=== PATIENT | female | born 1945 | race Caucasian/White ===

== ENCOUNTER 2020-03-05 15:07 | Emergency (ER) | payer MEDICARE, BC ==
--- NOTE | 2020-03-05 15:39 | EDM.PDOC ---
ED HPI GENERAL MEDICAL PROBLEM - General Chief Complaint: Headache Stated Complaint: HEADACHES AND MALONE SPOTS Time Seen by Provider: 03/05/20 15:35 Source of Information: Reports: Patient History Limitations: Reports: No Limitations - History of Present Illness INITIAL COMMENTS - FREE TEXT/NARRATIVE: 75-year-old female presents to the ED with acute left hemicranial headache prim arily in the parietal cortex over scalp. She states she never gets headaches. She states she was vigorously shaking a jar of mayonnaise yesterday morning and about 10 minutes later she developed the sudden onset of a headache in the left side of her head. She believes since then she is also had scotomata or floaters in her left visual field but no loss of visual field. Headache persists a day. Patient is concerned because she is on Coumadin for atrial fibrillation. Her numbers have been running high lately and they have been reducing her dosage. She has no problems with her balance she has had no nausea or vomiting. She has had no falls or closed head injuries. Stroke alert was called on this patient and she was seen promptly. Onset: Sudden Onset Date: 03/04/20 Duration: Hour(s):, Constant Location: Reports: Head ( Lt parietal headache. No skin sensitivity. ), Other (scotomata Lt eye ) Quality: Reports: Ache, Throbbing Severity: Moderate Improves with: Reports: None Worsens with: Reports: None Context: Denies: Activity, Exercise, Lifting, Sick Contact, Trauma, Other Treatments HADOOP DEVELOPER: Reports: Other (see below) (Taken a few Motrin tablets in spite of being on Coumadin for the headache.) Headache Pain Score (Numeric/FACES): 4 - Related Data Allergies Allergy/AdvReac Type Severity Reaction Status Date / Time sulfanilamide [Sulfanilamide] Allergy Hives Verified 03/05/20 15:24 Home Meds: Home Meds Levothyroxine [Synthroid] 100 mcg PO DAILY 05/15/18 [History] Metoprolol Succinate 100 mg PO DAILY 05/15/18 [History] Warfarin Sodium [Jantoven] 2.5 mg PO ASDIRECTED 05/15/18 [History] Warfarin Sodium [Jantoven] 5 mg PO ASDIRECTED 05/15/18 [History] dilTIAZem HCL [Cartia Xt] 120 mg PO DAILY 05/15/18 [History] Past Medical History HEENT History: Reports: Impaired Vision Other HEENT History: wears glasses Cardiovascular History: Reports: Afib, Hypertension Other Cardiovascular History: atrial fib PHOTO PRODUCER History: Reports: - Past Surgical History GI Surgical History: Reports: Colonoscopy Female Surgical History: Reports: Hysterectomy Musculoskeletal Surgical History: Reports: Shoulder Surgery Social & Family History - Caffeine Use Caffeine Use: Reports: Coffee - Living Situation & Occupation Living situation: Reports: Occupation: Employed (Self-employed) ED ROS GENERAL - Review of Systems Review Of Systems: See Below Constitutional: Denies: Fever, Chills, Malaise, Weakness, Fatigue, Decreased Appetite, Weight Loss HEENT: Reports: Glasses, Other (Change in visual field with scotomata and floaters I believe in her left visual field over the last day or 2.) Respiratory: Reports: No Symptoms Cardiovascular: Reports: Blood Pressure Problem, Palpitations, Other (Chronic atrial fibrillation.). Denies: Chest Pain Endocrine: Reports: Fatigue (Rarely appreciates palpitations.) GI/Abdominal: Reports: No Symptoms : Reports: Frequency Musculoskeletal: Reports: Back Pain (Patient on problems with knees and back pain.) Skin: Reports: Bruising (Bruises easily as she is on Coumadin.) Neurological: Reports: Headache (Headache in the left parietal scalp since yesterday morning). Denies: Confusion, Dizziness, Numbness, Paresthesia, Pre- Existing Deficit, Seizure, Syncope, Tingling ( which is rare for her to get a headache.), Tremors, Trouble Speaking, Difficulty Walking, Weakness, Change in Speech, Gait Disturbance Psychiatric: Reports: No Symptoms Hematologic/Lymphatic: Reports: No Symptoms Immunologic: Reports: No Symptoms - Physical Exam Exam: See Below Exam Limited By: No Limitations General Appearance: Alert, WD/WN, Anxious, Other (Patient absolutely refused to have an IV started for blood draw as she is deathly afraid of needles. She stated if we needed to start an IV she would leave rather than being seen. Most unusual reaction. Temperature is 36.2 with a heart rate of 73 respiratory is 20 O2 sats were 97% BP was initially elevated at 178 116 but did come down to 146/92.) Eye Exam: Bilateral Eye: Normal Inspection, PERRL Throat/Mouth: Normal Inspection, Normal Lips, Normal Oropharynx, Other Head Exam: Atraumatic, Normocephalic (Feel it is in the midline.) Neck: Normal Inspection, Supple, Non-Tender, Full Range of Motion, Carotid Bruit (Small very faint carotid bruit on the left side. Advised she should have ultrasound of the carotid arteries). No: Lymphadenopathy (L), Lymphadenopathy (R) Respiratory/Chest: Lungs Clear, Normal Breath Sounds (Mild tachypnea but I believe more to be anxiety.), No Accessory Muscle Use, Respiratory Distress Cardiovascular: Normal Peripheral Pulses, No Edema, No Gallop, No Murmur, No Rub, Irregularly Irregular GI/Abdominal: Normal Bowel Sounds, Soft, Non-Tender, No Organomegaly, No Mass, Pelvis Stable Neuro Exam (Abbreviated): Alert, Oriented, CN II-XII Intact, Normal Cognition, Other (Normal rapid alternating movements. No pronator drift. No weakness in any of her extremities. Visual field exam is normal compared to mine.) Extremities: Normal Inspection, Normal Range of Motion, Non-Tender Psychiatric: Normal Mood, Anxious Skin Exam: Warm, Dry, Intact, Normal Color, No Rash Course - Vital Signs Last Recorded V/S: Last Vital Signs Temp 36.2 C 03/05/20 15:21 Pulse 73 03/05/20 15:21 Resp 20 03/05/20 15:21 BP 178/116 H 03/05/20 15:21 Pulse Ox 97 03/05/20 15:21 - Radiology Interpretation Free Text/Narrative:: 75-year-old female presents to the ED complaining of a left hemicranial parietal headache since yesterday headaches are very unusual for her. She feels the headache came on after she was vigorously shaking a mayonnaise jar to get the mayonnaise out of it. Headache came on about 10 minutes later. She is on Coumadin for chronic atrial fibrillation and her dosages have been running high lately and have been altered almost on a weekly basis. She had a PT/INR drawn this morning but has not yet heard the results. Neuro exam was completely 100% normal. She has some scotomata in her right visual field and advised her to follow-up with optometry in this regard. There is no visual field deficit when compared to mine. Plan CT had to be done to rule out any intracranial bleeding - Re-Assessments/Exams Free Text/Narrative Re-Assessment/Exam: 03/05/20 16:37: CT of the head was performed without contrast. Ventricles along with the basal cisterns and sulci over the convexities are mildly prominent. Minimal basal ganglia calcification is seen. No abnormal parenchymal densities are seen. No evidence of intracranial hemorrhage. No midline shift or mass- effect is seen. Bone window settings were reviewed. Visualized paranasal sinuses and mastoid sinuses show nothing acute. Patient was reassured in this regard. She will continue use Tylenol on appearing basis for headache relief. My impression is that is coming out of the base of her neck. She is advised to keep an eye out for development of any rash to suggest shingles however her scalp was not hyper paresthetic. Advised direct care supervisor review of her eye to make sure there is no retinal disorder. Departure - Departure Time of Disposition: 17:15 Disposition: Home, Self-Care 01 Condition: Fair Clinical Impression: Headache Qualifiers: Headache type: unspecified Headache chronicity pattern: acute headache Intractability: not intractable Qualified Code(s): R51 - Headache - Discharge Information *PRESCRIPTION DRUG MONITORING PROGRAM REVIEWED*: Not Applicable *COPY OF PRESCRIPTION DRUG MONITORING REPORT IN PATIENT CA: Not Applicable Instructions: General Headache Without Cause Referrals: Sd Alonso MD [Primary Care Provider] - Forms: ED Department Discharge Additional Instructions: Arash today in regards to a left hemicranial headache primarily over the parietal aspect of this head since yesterday after vigorously shaking a mayonnaise jar. Usually rarely ever get a headache. Then you also appreciated flashing lights and floaters within your left visual field. I suspect the 2 things are not related. Due to the fact that you are on Coumadin a CT scan of your brain was carried out and was found to be within normal limits with no evidence of intracranial bleeding or mass-effect. Headaches usually come from the nerves that supply the scalp skin not from the brain itself which has no pain receptors. At this point time it may be referred from the upper neck musculature and nerves. Suggest Tylenol as needed for headache relief as you are on Coumadin and should not take too much Motrin as it further thins her blood. I would suggest follow-up with an direct care supervisor to have your left eye checked out to make sure that there is no developing retinal tears. Usually scotomata and floaters are secondary to aging inside the eye. Niccoli there is no evidence of glaucoma. Sepsis Event Note (ED) - Evaluation Sepsis Screening Result: No Definite Risk - Focused Exam Vital Signs: Vital Signs Temp Pulse Resp BP Pulse Ox 03/05/20 15:21 36.2 C 73 20 178/116 H 97
--- NOTE | 2020-03-05 16:10 | CT ---
Head CT Technique: Multiple axial sections through the brain were obtained. Intravenous contrast was not utilized. Comparison: No prior intracranial imaging is available. Findings: Ventricles along with basal cisterns and sulci over convexities are mildly prominent. Minimal basal ganglia calcification is seen. No abnormal parenchymal densities are seen. No evidence of intracranial hemorrhage. No midline shift or mass effect is seen. Bone window settings were reviewed. Visualized paranasal sinuses and mastoid sinuses show nothing acute. No acute calvarial finding is seen. Impression: 1. Nothing acute is appreciated on noncontrast head CT exam. Diagnostic code #2 Study was dictated in MDT
== END 2020-03-05 17:26 | disposition home or self-care (01) ==
LOC: JD.ED 15:07
DX: R51 Headache (principal); I10 Essential (primary) hypertension; I48.91 Unspecified atrial fibrillation; Z88.2 Allergy status to sulfonamides; Z79.899 Other long term (current) drug therapy; Z79.01 Long term (current) use of anticoagulants
CPT/HCPCS: 70450; 70450-26; 99282; 99284-25